=== PATIENT | female | born 1985 | race Caucasian/White ===

== ENCOUNTER 2020-04-27 11:29 | Emergency (ER) | payer OTHER, SELFPAY ==
[2020-04-27 11:49] VITALS: BP 116/72; PULSE 83; RESP 18; TEMP 36.8; O2SAT 100; BMI 24.0
--- NOTE | 2020-04-27 11:55 | ED.NAVMDI ---
HPI - Nausea/Vomiting/Diarrhea General Chief complaint: General Medical Stated complaint: vomiting - 9wks preg Time Seen by Provider: 04/27/20 11:46 Source: patient Mode of arrival: ambulatory Limitations: no limitations History of Present Illness HPI Narrative: 35-year-old female with a past medical history of substance abuse here with nausea and vomiting X3 days. Patient tells me she is currently 9 weeks and has an KARRIE of December 08. She was seen last week at [facility] in [place] and had ultrasound which confirmed IUP. She last used heroin this morning 1 hour prior to arrival. She tells me she uses multiple bags every day. She called around to try to get detox but was told she needed to be on methadone prior to being accepted. No abdominal cramping or diarrhea. No vaginal bleeding or urinary symptoms. MD elicited complaint: nausea and vomiting Onset (ago): day(s) Description of vomiting: food contents Associated nausea: Yes Associated abdominal pain: No Exacerbating factors: none Relieving factors: none Associated symptoms: nausea/vomiting Related Data Previous Rx's Medication Instructions Recorded ondansetron 4 mg PO Q6H PRN #10 tab 04/27/20 Allergies Allergy/AdvReac Type Severity Reaction Status Date / Time No Known Allergies Allergy Unverified 02/12/20 17:05 Review of Systems Review of Systems: Yes all other systems are reviewed and are negative Constitutional: Constitutional: Reports no additional constitutional complaints, Denies body ache(s), Denies chills, Denies fever(s), Denies headache(s) and Denies weakness Eyes: Eyes: Reports no additional eye complaints and Denies change in vision ENT: Reports system reviewed and no additional complaints, except as documented, Denies dizziness, Denies headache(s), Denies nasal congestion, Denies nasal discharge and Denies neck pain Cardiovascular: Cardiovascular: Reports no additional cardiovascular complaints, Denies chest pain, Denies leg edema and Denies dyspnea Respiratory: Respiratory: Reports no additional respiratory complaints, Denies cough and Denies dyspnea Gastrointestinal: Gastrointestinal: Denies abdominal pain, Denies diarrhea, Reports nausea and Reports vomiting Genitourinary: Genitourinary: Reports no additional female genitourinary complaints, Denies abnormal vaginal bleeding, Denies difficulty voiding, Denies dysuria, Denies pelvic pain, Denies urinary incontinence, Denies urinary hesitancy, Denies urinary urgency and Denies vaginal discharge Musculoskeletal: Musculoskeletal: Reports no additional musculoskeletal complaints, Denies back pain, Denies arthralgias, Denies joint swelling, Denies neck pain, Denies numbness and Denies tingling Integumentary/Breasts: Skin/Breast: Reports system reviewed and no additional complaints, except as docu and Denies rash Neurologic: Reports system reviewed and no additional complaints, except as documented, Denies Abnormal speech present, Denies dizziness, Denies headache(s), Denies numbness, Denies tingling and Denies weakness [facility] Past Medical History Attestation statement: The following information was validated with the patient. Source: old records reviewed and nursing notes reviewed Medical History Hepatitis C Opiate abuse, continuous Social History Social History Alcohol intake: never Smoking Status: Never smoker Smoked in Last 30 Days: No Use of substances other than those prescribed or required for medical reasons: Yes Substance Use Type: Heroin Substance Use Frequency: Daily Last Used Substance: Hours (ago) Any prior treatment program specific to substance use: Yes Advance Directives: No Advance Directives Information Provided: No Physical Exam Vital Signs: Vital Signs: Last Vital Signs Temp 98.2 F 04/27/20 14:00 Pulse 96 04/27/20 15:36 Resp 18 04/27/20 16:22 BP 102/50 L 04/27/20 14:49 Pulse Ox 97 04/27/20 15:36 Body Mass Index 24.0 Const: General: cooperative, healthy appearing, comfortable and no acute distress Orientation/consciousness: patient oriented x3 Limitations: no limitations HENMT: Head: Yes normal to inspection Ears: hearing grossly normal bilaterally General nose exam: Normal external nose present Face and sinus: Yes normal facial exam Mouth: Normal oral and palatal mucosa present Throat: Yes posterior oropharynx normal Eyes: General: appearance normal, both eyes and all related structures Pupils: Equal, round and reactive pupils present Neck: Neck: Yes normal visual inspection Chest: Chest palpation & inspection: normal inspection of the chest Resp: Effort & Inspection: normal respiratory effort Auscultation: clear to auscultation bilaterally Cardio: Rate: regular rate Rhythm: regular rhythm Peripheral pulses: Peripheral pulses 2+ throughout GI: Inspection: Yes normal to inspection Palpation (GI): Soft to palpation and nontender Auscultation: normal bowel sounds Back/Spine/Pelvis: Thoracic/Lumbar Spine: thoracic and lumbar spine normal to inspection Skin: General skin exam: no rashes or lesions noted Neuro: General: patient oriented x3, no focal motor deficits and normal sensation to monofilament Cranial nerves: Yes Equal, round and reactive pupils present Cognition (Neuro): normal cognition Speech: No Abnormal speech present Gait exam (Neuro): Normal gait present Motor exam (neuro): 5/5 motor strength present throughout Extrem: General: Yes normal to inspection Course Course Course Narrative: 35-year-old female with a history of IV heroin use 9 weeks here with nausea and vomiting. last use 1 hour prior to arrival. Patient tells me she is unable to maintain any p.o.. No abdominal pain or cramping or vaginal bleeding. Will check labs, UA, drug screen, urine . Will give normal saline bolus and IV antiemetics. Involve debt recovery officer is. Did discuss patient with Rolanda jackson APRN who recommended that if confirmed can start methadone 15 mg. Suboxone is a alternative. Patient is resistant to both at this time but may be interested in detox. ice hockey coach and social work aware. Requesting labs, proof of including US. 1420-Difficult to obtain labs. Able to obtain PIV and start NSB. Offered to place EJ but patient declined. autocad technician to re-attempt peripheral stick. 1600- Labs unremarkable. UA does show 80 ketones. Patient received 2 L normal saline, antiemetics and a small dose of lorazepam. There are unfortunately no detox beds however she is 1st on the list for [place]. Ultrasound pending. 1715- ultrasound confirmed . Patient is now tolerating p.o.. She ate saltines and had bala ariana with no additional vomiting episodes. She would like to be discharged home. Patient continues to be resistant to Suboxone and methadone Although offered. Reviewed worrisome signs and symptoms of when to return to the emergency department. Comfortable discharge home. MDM - Nausea/Vomiting/Diarrhea Medical Records Attestation: I reviewed the patient's medical records. Lab Data Attestation: I reviewed the patient's lab results. Result diagrams: 04/27/20 14:20 04/27/20 14:20 Labs: Lab Results 04/27/20 04/27/20 04/27/20 Range/Units 14:13 14:14 14:14 WBC (4.8-10.8) X10*3/uL RBC (4.20-5.50) X10*6/uL Hgb (12.0-16.0) g/dl Hct (37-47) % MCV (80-98) fL MCH (27.0-33.0) pg MCHC (31.0-35.0) g/dl RDW (11.0-16.0) % Plt Count (160-400) X10*3/uL MPV (9.4-12.3) fL Immature Gran % (Auto) (0.0-0.4) % Neut % (Auto) (45-73) % Lymph % (Auto) (20-40) % [place] % (Auto) (2-11) % Eos % (Auto) (0-4) % Baso % (Auto) (0-2) % Lymph # (Auto) (1.2-4.9) X10*3/uL [place] # (Auto) (0.1-1.2) X10*3/uL Eos # (Auto) (0.0-0.4) X10*3/uL Baso # (Auto) (0.0-0.2) X10*3/uL Abs Immat Gran (auto) (0.00-0.03) X10*3/uL Absolute Neuts (auto) (2.0-8.3) X10*3/uL Absolute Nucleated RBC (0.0-0.012) X10*3/uL Nucleated RBC % (auto) (0.0-0.2) /100WBC Sodium (135-145) mmol/L Potassium (3.3-5.1) mmol/l Chloride (96-108) mmol/L Carbon Dioxide (22-29) mmol/L Anion Gap (12-20) BUN (9-16) mg/dL Creatinine (0.5-1.4) mg/dL Estim Creat Clear Calc Estimated GFR Random Glucose (60-115) mg/dL Calcium (8.4-10.2) mg/dL Magnesium (1.6-2.6) mg/dL Total Bilirubin (0.0-1.0) mg/dL Direct Bilirubin (0.0-0.5) mg/dL AST (5-31) U/L ALT (0-31) U/L Alkaline Phosphatase (39-117) U/L Total Protein (6.5-8.0) g/dL Albumin (3.5-5.0) g/dL Beta HCG, Quant mIU/mL Urine Color YELLOW Urine Appearance CLEAR Urine pH 6.0 (5.0-8.0) Ur Specific Verner >= 1.030 H (1.005-1.025) Urine Protein NEG (NEG-TRACE) MG/DL Urine Glucose (UA) NEG (NEG) MG/DL Urine Ketones >=80 (NEG) MG/DL Urine Blood NEG (NEG) Urine Nitrite NEG (NEG) Ur Leukocyte Esterase NEG (NEG) Urine Test POSITIVE H (NEGATIVE) Urine Opiates Screen Not Detected (Not Detect) Ur Barbiturates Screen Not Detected (Not Detect) Ur Phencyclidine Scrn Not Detected (Not Detect) Ur Amphetamines Screen Not Detected (Not Detect) U Benzodiazepines Scrn Not Detected (Not Detect) Urine Cocaine Screen Not Detected (Not Detect) U Marijuana (THC) Screen Not Detected (Not Detect) 04/27/20 04/27/20 04/27/20 Range/Units 14:20 14:20 14:20 WBC 9.7 (4.8-10.8) X10*3/uL RBC 4.87 (4.20-5.50) X10*6/uL Hgb 12.6 (12.0-16.0) g/dl Hct 39.1 (37-47) % MCV 80.3 (80-98) fL MCH 25.9 L (27.0-33.0) pg MCHC 32.2 (31.0-35.0) g/dl RDW 14.9 (11.0-16.0) % Plt Count 212 (160-400) X10*3/uL MPV 10.1 (9.4-12.3) fL Immature Gran % (Auto) 0.3 (0.0-0.4) % Neut % (Auto) 86.2 H (45-73) % Lymph % (Auto) 10.6 L (20-40) % [place] % (Auto) 2.7 (2-11) % Eos % (Auto) 0.0 (0-4) % Baso % (Auto) 0.2 (0-2) % Lymph # (Auto) 1.0 L (1.2-4.9) X10*3/uL [place] # (Auto) 0.3 (0.1-1.2) X10*3/uL Eos # (Auto) 0.0 (0.0-0.4) X10*3/uL Baso # (Auto) 0.0 (0.0-0.2) X10*3/uL Abs Immat Gran (auto) 0.03 (0.00-0.03) X10*3/uL Absolute Neuts (auto) 8.4 H (2.0-8.3) X10*3/uL Absolute Nucleated RBC 0.000 (0.0-0.012) X10*3/uL Nucleated RBC % (auto) 0.0 (0.0-0.2) /100WBC Sodium 137 (135-145) mmol/L Potassium 3.4 (3.3-5.1) mmol/l Chloride 103 (96-108) mmol/L Carbon Dioxide 19 L (22-29) mmol/L Anion Gap 18 (12-20) BUN 13 (9-16) mg/dL Creatinine 0.59 (0.5-1.4) mg/dL Estim Creat Clear Calc 120.9 Estimated GFR > 60 Random Glucose 86 (60-115) mg/dL Calcium 8.8 (8.4-10.2) mg/dL Magnesium 1.7 (1.6-2.6) mg/dL Total Bilirubin 0.6 (0.0-1.0) mg/dL Direct Bilirubin 0.2 (0.0-0.5) mg/dL AST 18 (5-31) U/L ALT 28 (0-31) U/L Alkaline Phosphatase 95 (39-117) U/L Total Protein 7.6 (6.5-8.0) g/dL Albumin 4.2 (3.5-5.0) g/dL Beta HCG, Quant 890747 mIU/mL Urine Color Urine Appearance Urine pH (5.0-8.0) Ur Specific Verner (1.005-1.025) Urine Protein (NEG-TRACE) MG/DL Urine Glucose (UA) (NEG) MG/DL Urine Ketones (NEG) MG/DL Urine Blood (NEG) Urine Nitrite (NEG) Ur Leukocyte Esterase (NEG) Urine Test (NEGATIVE) Urine Opiates Screen (Not Detect) Ur Barbiturates Screen (Not Detect) Ur Phencyclidine Scrn (Not Detect) Ur Amphetamines Screen (Not Detect) U Benzodiazepines Scrn (Not Detect) Urine Cocaine Screen (Not Detect) U Marijuana (THC) Screen (Not Detect) Imaging Data Ultrasound: Attestation: I personally reviewed and interpreted this imaging study as follows: Radiologist's impression: EXAMINATION: FIRST TRIMESTER OB ULTRASOUND CLINICAL INFORMATION: Confirm for detox placement. Vomiting. 9 weeks . COMPARISON: None TECHNIQUE: Transabdominal first trimester OB ultrasound FINDINGS: The uterus is normal in size and shape. There is an intrauterine gestational sac. [place]-rump length measures 2.4 cm suggesting gestational age of 9 weeks 2 days with estimated date of delivery of 11/28/2020. heart rate is 174 bpm. There is a yolk sac. There is a small crescent shaped fluid collection adjacent to the gestational sac measuring 0.3 x 2.4 cm questionable for small subchorionic hemorrhage. The right maternal ovary is normal and measures 2.9 x 2.5 x 2.5 cm. The left maternal ovary is not seen. There is no fluid in the pelvis. US/ OB <= 14 weeks fetus IMPRESSION: Single viable intrauterine . From today's measurements gestational age is estimated at 9 weeks 2 days with estimated date of delivery of 11/28/2020. Discharge Plan Discharge Clinical Impression: , Vomiting, Acute dehydration, Substance abuse Patient Disposition: Home, Self-Care Instructions: (ED), Dehydration (ED), Acute Nausea and Vomiting (ED), Opioid Use Disorder (ED) Prescriptions: New ondansetron 4 mg tablet,disintegrating 4 mg PO Q6H PRN (Reason: nausea and vomiting) Qty: 10 RF: 0 Referrals: Physician,None [Primary Care Provider] - 2 days Interventions: ED Discharge Assessment Last Done: 04/27/20 17:21 Discharge Date/Time: 04/27/20 17:22
[2020-04-27] MEDS: ondansetron HCL 4 MG/2 ML VIAL IVPUSH (12:40)
[2020-04-27] MEDS: 0.9 % Sodium Chloride 1,000 ML 999 ML IV ×2 (12:41→14:25)
--- NOTE | 2020-04-27 13:00 | PC.NURSE ---
patient a&ox3, iv site obtained via ultrasound patient has poor access, labs unable to be obtained-provider aware- called phlebotomy to attempt and they stated it would be a while before they would be able to send somebody to floor to obtain, will notify charge.
--- NOTE | 2020-04-27 13:16 | PC.NURSE ---
notified microsoft dynamics manager architect about phlebotomy unable to draw, microsoft dynamics manager architect to come access the patient access.
--- NOTE | 2020-04-27 13:16 | PC.NURSE ---
pitching coach in with patient
[2020-04-27 14:00] VITALS: BP 110/48; PULSE 107; RESP 18; TEMP 36.8; O2SAT 100
--- NOTE | 2020-04-27 14:13 | MHC.CARE ---
Recovery Support note: Patient is a 35 year old Macedonian speaking female who presented to [facility] reporting that she is 9 weeks and having a hard time getting into detox for this reason. Patient reports daily opiate use. Patient is interested in going to a facility that can start her on Methadone and taper her down so that she does not need to continue with Methadone maintenance. [facility], [facility] and [facility] report that they can provide this service. Patient reports she does not want to go to detox today because of how lousy she is feeling. Patient interested in getting admitted tomorrow. Patient willing to have information sent to [facility] and [facility]. Facilities are requesting current labs and an ultrasound to show that patient is . Patient reports anxiety and is interested in leaving, however will remain until labs and ultrasound are completed. Discussed case with patients RN and ED provider. This commercial lines underwriter will fax patient information to the two facilities as soon as the information is available.
[2020-04-27 14:25] LABS: MANUAL DIFF FLAG NO
[2020-04-27] MEDS: diphenhydrAMINE HCL 50 MG/ML VIAL 25 MG IVPUSH (14:25)
--- NOTE | 2020-04-27 14:26 | PC.NURSE ---
PATIENT MEDICATED PER ORDER
[2020-04-27 14:28] LABS: Basophils Percent Auto 0.2 % (0-2); Hematocrit 39.1 % (37-47); Hemoglobin 12.6 g/dl (12.0-16.0); Imm Gran Abs Auto 0.03 X10*3/uL (0.00-0.03); Imm Gran Pct Auto 0.3 % (0.0-0.4); Lymphocytes Percent Auto 10.6 % (20-40); Mean Corpuscular HGB Conc 32.2 g/dl (31.0-35.0); Mean Corpuscular Hemoglobin 25.9 pg (27.0-33.0); Mean Corpuscular Volume 80.3 fL (80-98); Mean Platelet Volume 10.1 fL (9.4-12.3); Monocytes Absolute Auto 0.3 X10*3/uL (0.1-1.2); Monocytes Percent Auto 2.7 % (2-11); Neutrophils Absolute Auto 8.4 X10*3/uL (2.0-8.3); Neutrophils Percent Auto 86.2 % (45-73); Platelet Count 212 X10*3/uL (160-400); Red Blood Count 4.87 X10*6/uL (4.20-5.50); Red Cell Distribution Width 14.9 % (11.0-16.0); White Blood Count 9.7 X10*3/uL (4.8-10.8)
[2020-04-27 14:32] LABS: Glucose Urine UA NEG (NEG); Leukocyte Esterase Urine NEG (NEG); Nitrite Urine NEG (NEG); Specific Gravity - Urine >= 1.030 (1.005-1.025); Urine Blood NEG (NEG); Urine Ketones >=80 MG/DL (NEG); Urine Protein NEG (NEG-TRACE)
[2020-04-27 14:34] LABS: UPreg QC Valid YES; Urine Pregnancy POSITIVE (NEGATIVE)
[2020-04-27 14:35] LABS: Appearance Urine CLEAR; Color Urine YELLOW
--- NOTE | 2020-04-27 14:42 | US_ITS ---
EXAMINATION: FIRST TRIMESTER OB ULTRASOUND CLINICAL INFORMATION: Confirm for detox placement. Vomiting. 9 weeks . COMPARISON: None TECHNIQUE: Transabdominal first trimester OB ultrasound FINDINGS: The uterus is normal in size and shape. There is an intrauterine gestational sac. [place]-rump length measures 2.4 cm suggesting gestational age of 9 weeks 2 days with estimated date of delivery of 11/28/2020. heart rate is 174 bpm. There is a yolk sac. There is a small crescent shaped fluid collection adjacent to the gestational sac measuring 0.3 x 2.4 cm questionable for small subchorionic hemorrhage. The right maternal ovary is normal and measures 2.9 x 2.5 x 2.5 cm. The left maternal ovary is not seen. There is no fluid in the pelvis. US/US OB <= 14 weeks fetus IMPRESSION: Single viable intrauterine . From today's measurements gestational age is estimated at 9 weeks 2 days with estimated date of delivery of 11/28/2020.
[2020-04-27 14:49] VITALS: BP 102/50; PULSE 122; RESP 22; O2SAT 98
--- NOTE | 2020-04-27 14:49 | PC.NURSE ---
patient a&ox3, c/o being restless, wanting methadone now, pt requesting to see provider, vitals obtained- provider notified, will continue to monitor.
[2020-04-27 14:53] LABS: Amphetamine Screen Urine Not Detected (Not Detect); Barbiturates, Urine Not Detected (Not Detect); Benzodiazepines Screen Urine Not Detected (Not Detect); Cannabinoid Screen Urine Not Detected (Not Detect); Cocaine Screen Urine Not Detected (Not Detect); Opiate Screen Urine Not Detected (Not Detect); Phencyclidine Screen Urine Not Detected (Not Detect)
[2020-04-27] MEDS: LORazepam 2 MG/ML VIAL 1 MG IVPUSH (15:16)
[2020-04-27 15:23] LABS: Alanine Aminotransferase 28 U/L (0-31); Albumin Level 4.2 g/dL (3.5-5.0); Alkaline Phosphatase 95 U/L (39-117); Anion Gap 18 (12-20); Aspartate Amino Transferase 18 U/L (5-31); Bilirubin Direct 0.2 mg/dL (0.0-0.5); Bilirubin Total 0.6 mg/dL (0.0-1.0); Blood Urea Nitrogen 13 mg/dL (9-16); Calcium 8.8 mg/dL (8.4-10.2); Carbon Dioxide 19 mmol/L (22-29); Chloride 103 mmol/L (96-108); Creatinine Clr Calc Pharmacy 120.9; Estimated Glomerular Filt Rate > 60; Glucose Random 86 mg/dL (60-115); Magnesium 1.7 mg/dL (1.6-2.6); Potassium 3.4 mmol/l (3.3-5.1); Sodium 137 mmol/L (135-145); Total Protein 7.6 g/dL (6.5-8.0)
[2020-04-27 15:36] VITALS: PULSE 96; RESP 18; O2SAT 97
--- NOTE | 2020-04-27 15:39 | PC.NURSE ---
pt being transported to ultrasound
--- NOTE | 2020-04-27 16:12 | PC.NURSE ---
pt returned from us
[2020-04-27 16:22] VITALS: RESP 18
--- NOTE | 2020-04-27 16:22 | PC.NURSE ---
patient currently sleeping, rr 18, full set of vitals will be obtained upon her waking, will continue to monitor.
== END 2020-04-27 17:22 | disposition home or self-care (01) ==
PROVIDERS: Nurse Practitioner Family; Emergency Provider Emergency Medicine
DX: O26.891 Other specified pregnancy related conditions, first trimester (principal); E86.0 Dehydration; R11.2 Nausea with vomiting, unspecified; O99.321 Drug use complicating pregnancy, first trimester; F11.10 Opioid abuse, uncomplicated; Z3A.09 9 weeks gestation of pregnancy
CPT/HCPCS: 36415; 76801; 80048; 80076; 80307; 81003; 81025; 83735; 84702; 85025; 96361; 96374; 96375; 99284; J1200; J2060; J2405